=== PATIENT | female | born 1950 | race Caucasian/White ===

== ENCOUNTER 2018-02-07 18:39 | Emergency (ER) | payer OTHER ==
[2018-02-07 18:55] VITALS: BP 143/86
[2018-02-07] MEDS ORDERED: LIDOCAINE-EPINEPH-TETRACAINE 3 ML SYRINGE TOP STA (19:19)
[2018-02-07] MEDS ORDERED: TETANUS/DIPHTHERIA/PERTUSSIS 0.5 ML SYRINGE IM ONE (19:19)
--- NOTE | 2018-02-07 19:21 | ED Physician Documentation ---
PD HPI HEAD INJURY - Stated complaint Stated Complaint: GLF - LIP/NOSE LAC - Chief complaint Chief Complaint: Trauma Hd/Nk - History obtained from History obtained from: Patient - History of Present Illness Mechanism of head injury: Fell (She fell off a boat getting off the boat and hit on her face on the dock. There was no loss of consciousness or headache. Complains of nasal pain and injured incisors and facial scrapes. She has a borderline tetanus status. She declines pain medication.) Timing - onset: Today Review of Systems Constitutional: denies: Fever, Chills Nose: denies: Rhinorrhea / runny nose, Congestion, Epistaxis Throat: denies: Sore throat Cardiac: denies: Chest pain / pressure, Palpitations PD PAST MEDICAL HISTORY - Past Medical History Past Medical History: No - Past Surgical History Past Surgical History: No - Present Medications Home Medications: Ambulatory Orders Medication Instructions Recorded Confirmed Cephalexin [Keflex] 500 mg PO QID #40 capsule 02/07/18 - Allergies Allergies/Adverse Reactions: Allergies Allergy/AdvReac Type Severity Reaction Status Date / Time Penicillins Allergy Unknown Verified 02/07/18 20:26 Sulfa (Sulfonamide Allergy Unknown Verified 02/07/18 20:27 Antibiotics) - Social History Does the pt smoke?: No Smoking Status: Never smoker Does the pt drink ETOH?: No Does the pt have substance abuse?: No - Immunizations Immunizations are current?: Yes - POLST Patient has POLST: No PD ED PE NORMAL - Vitals Vital signs reviewed: Yes - General General: Alert and oriented X 3, No acute distress - HEENT HEENT: PERRL, EOMI, Other (Slight deformity of the nasal bridge to the right with a laceration on the top left of the nasal bridge, very slightly posterior subluxed #8 9 without other obvious facial bony tenderness.) - Neck Neck: Supple, no meningeal sign, No bony TTP - Neuro Neuro: Alert and oriented X 3, 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 Eye Opening: Spontaneous Motor: Obeys Commands Verbal: Oriented GCS Score: 15 - Psych Psych: Normal mood, Normal affect Results - Vitals Vitals: Vital Signs - 24 hr 02/07/18 18:51 Temperature 35.9 C L Heart Rate 79 Respiratory 18 Rate Blood Pressure 143/86 H O2 Saturation 100 Oxygen O2 Source Room air - Rads (name of study) Ct facial bones Radiology: EMP read contemporaneously Procedures - Laceration (location) nasal bridge Length in cm: 1 Wound type: Linear Anesthesia: LET Wound Preparation: Irrigated copiously NS Skin layer closure: Prolene, Size #-0 - enter number (6-0), Sutures - enter # (2 ) Other: Neurovascular intact, Tetanus booster given Complexity: Simple PD MEDICAL DECISION MAKING - ED course ED course: 67-year-old woman with ground-level fall with facial injuries, has a mild nasal fracture and some scrapes on the face and a nasal bridge laceration was irrigated and closed and she was started on Keflex. In my opinion the nasal fracture probably does not need surgical intervention but she was referred to a local oral maxillofacial surgeon. The family wanted me to call Urdu and talk to their facial surgeon. I did call there at their request and there was quite a delay in talking to them- In fact they were never able to get me on the line with the facial surgeon, because they do trauma and therefore do not take facial surgery call. I had discharged the patient at that point, as they were understandably tired of waiting, so I left a voicemail with her getting that update. I encouraged her to still follow-up with a local OMFS. - Sepsis Event Vital Signs: Vital Signs - 24 hr 02/07/18 18:51 Temperature 35.9 C L Heart Rate 79 Respiratory 18 Rate Blood Pressure 143/86 H O2 Saturation 100 Oxygen O2 Source Room air Departure - Departure Disposition: 01 Home, Self Care Clinical Impression: Open nasal fracture Qualifiers: Encounter type: initial encounter Qualified Code(s): S02.2XXB - Fracture of nasal bones, initial encounter for open fracture Fracture of facial bone Qualifiers: Encounter type: initial encounter Facial bone/location: nasal bone Fracture type: open Qualified Code(s): S02.2XXB - Fracture of nasal bones, initial encounter for open fracture Condition: Good Record reviewed to determine appropriate education?: Yes Instructions: ED Fx Nasal Conf W X Ray Prescriptions: Cephalexin [Keflex] 500 mg PO QID #40 capsule Comments: For the nasal fracture I would like you to follow-up with Dr. Sudheer Pastor and oral maxillofacial surgeon in [place], his phone number is [phone], Take the copy of the CAT scan with you to that appointment. I have faxed a referral to his office as well. Your blood pressure was elevated today on check into the emergency department. This does not mean that you have hypertension, it is a common phenomenon to come to the emergency department and have elevated blood pressure. I recommend that you see your primary care physician within the week to have it rechecked when you are feeling better. Discharge Date/Time: 02/07/18 21:26
[2018-02-07] MEDS ORDERED: ONDANSETRON ODT 4 MG TABLET TL STA (19:52)
--- NOTE | 2018-02-07 20:04 | CT Report ---
Procedure Date: 02/07/2018 Accession Number: [id number] / [id number] Procedure: CT - Facial Bones W/O CPT Code: FULL RESULT: EXAM: CT MAXILLOFACIAL WITHOUT CONTRAST EXAM DATE: 02/07/2018 07:50 PM. CLINICAL HISTORY: Trauma, pain. COMPARISONS: None. TECHNIQUE: Thin-section axial images were acquired of the face without contrast. Post-processing: Coronal and sagittal reformats. Other: None. In accordance with CT protocol optimization, one or more of the following dose reduction techniques were utilized for this exam: automated exposure control, adjustment of mA and/or KV based on patient size, or use of iterative reconstructive technique. FINDINGS: Soft Tissue: The infratemporal fossa and parapharyngeal spaces are unremarkable. Orbits: Symmetric and unremarkable. Bones: The subtle minimally depressed fractures of the nasal alae. Superior and inferior nasal spines appear intact. No other definite fracture or bone lesion. Temporomandibular Joints: The temporomandibular joints are symmetric and normally located. Sinuses: Normal. No mucosal thickening or fluid levels. Other: Mucosal thickening of turbinates indicating nasal congestion. Irregularity and small defect of soft tissues overlying the nose. IMPRESSION: Nasal alar fracture. RADIA
[2018-02-07] MEDS ORDERED: ACETAMINOPHEN 500 MG TABLET PO STA (20:08)
[2018-02-07] MEDS ORDERED: cephALEXin 250 MG CAPSULE PO STA (20:21)
== END 2018-02-07 21:26 | disposition home or self-care (01) ==
LOC: ED 18:39
DX: S02.2XXB Fracture of nasal bones, initial encounter for open fracture (principal); Z23 Encounter for immunization; W19.XXXA Unspecified fall, initial encounter; Y92.814 Boat as the place of occurrence of the external cause
CPT/HCPCS: 12011; 70486; 90471; 90715; 99281; 99284; A9270

== ENCOUNTER 2023-12-18 17:10 | Emergency (ER) | payer MEDICARE, OTHER ==
--- NOTE | 2023-12-18 17:27 | ED Physician Documentation ---
PD HPI MAJOR TRAUMA - Stated complaint Stated Complaint: FALL OFF HORSE - Chief complaint Chief Complaint: Trauma Ch/Bk - Additional information Additional information: 72-year-old female with no pertinent past medical history presents emergency department after falling off horse. Patient says that she got on her horse. Back to write it back to the house and it is a cutting horse made a sharp sudden move patient lost balance and fell off of the horse on her left side. She says that she thinks that she lost consciousness as she does not recall the event or what entirely happened. She is not on blood thinners she called 911 upon arr ival from EMS patient was found walking to the ambulance. Patient endorses and head and neck pain, left shoulder pain although she says that she does have chronic left shoulder pain. And also endorses an left hip/left buttocks pain. She is having no difficulty breathing no vision changes completely neurologically intact at this point in time. PD PAST MEDICAL HISTORY - Past Medical History Past Medical History: Yes - Past Surgical History Past Surgical History: No - Present Medications Home Medications: Ambulatory Orders Medication Instructions Recorded Confirmed cephALEXin [Keflex] 500 mg PO QID #40 capsule 02/07/18 - Allergies Allergies/Adverse Reactions: Allergies Allergy/AdvReac Type Severity Reaction Status Date / Time Penicillins Allergy Rash Verified 12/18/23 17:17 Sulfa (Sulfonamide Allergy Unknown Verified 12/18/23 17:17 Antibiotics) - Social History Does the pt smoke?: No Smoking Status: Never smoker Does the pt drink ETOH?: No Does the pt have substance abuse?: No - Immunizations Immunizations are current?: Yes - POLST Patient has POLST: No PD ED PE NORMAL - Vitals Vital signs reviewed: Yes - General General: Alert and oriented X 3, No acute distress, Other (Patient is slightly cachectic) - HEENT HEENT: PERRL - Neck Neck: No JVD, Other (cervical tenderness with palpation) - Cardiac Cardiac: RRR, No murmur, No gallop, Strong equal pulses - Respiratory Respiratory: No respiratory distress, Clear bilaterally - Abdomen Abdomen: Normal bowel sounds, Soft, Non distended, No organomegaly, Other (left rib tenderness.) - Back Back: Other (left CVA tenderness) - Derm Derm: Normal color, Warm and dry, No rash - Extremities Extremities: Other - Neuro Neuro: Alert and oriented X 3, 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 Left hip: Pain with flexion extension of the left hip without any crepitus tenderness over the left buttocks region. Left knee within normal limits. Results - Vitals Vitals: Vital Signs - 24 hr 12/18/23 12/18/23 12/18/23 17:18 17:52 18:22 Temperature 35.9 C L Heart Rate 76 86 90 Respiratory 18 16 16 Rate Blood Pressure 153/73 H 133/68 H 136/87 H O2 Saturation 98 100 100 12/18/23 12/18/23 12/18/23 19:00 19:30 20:00 Temperature Heart Rate 93 93 97 Respiratory 18 17 16 Rate Blood Pressure 142/90 H 147/78 H 135/91 H O2 Saturation 100 98 100 Oxygen O2 Source Room air - Labs Labs: Laboratory Tests 12/18/23 12/18/23 17:48 17:58 WBC 13.8 H RBC 3.89 L Hgb 12.1 Hct 36.9 L MCV 94.9 MCH 31.1 H MCHC 32.8 RDW 13.6 Plt Count 196 MPV 10.1 Neut # (Auto) 11.9 H Lymph # (Auto) 1.0 L Hanson # (Auto) 0.8 Eos # (Auto) 0.0 Baso # (Auto) 0.0 Absolute Nucleated RBC 0.00 Nucleated RBC % 0.0 Sodium 137 Potassium 3.9 Chloride 105 Carbon Dioxide 25 Anion Gap 7.0 BUN 22 H Creatinine 0.8 Estimated GFR (MDRD) 71 L Glucose 130 H Calcium 9.4 Magnesium 1.6 L Total Bilirubin 0.4 AST 33 ALT 20 Alkaline Phosphatase 50 Total Protein 6.6 Albumin 4.0 Globulin 2.6 Albumin/Globulin Ratio 1.5 Lipase 50 - Rads (name of study) Hip/pelvis left Relevant Findings:: Final report received, EMP independent interpretation of test, Other (No acute bony abnormalities or findings.) Cervical spine without Relevant Findings:: Final report received, EMP independent interpretation of test, Other (No acute bony abnormalities or findings) Chest CT without Relevant Findings:: Final report received, EMP independent interpretation of test, Other (No rib fractures no hemothorax no pneumothorax, bibasilar atelectasis incidental finding of right minor fissure pulmonary nodule measuring 0.5 cm) Head CT without Relevant Findings:: Final report received, EMP independent interpretation of test, Other (No acute intracranial hemorrhages or abnormalities.) PD Medical Decision Making - ED course ED course: 72-year-old female presents emergency department After falling off her horse. CT head without, CT cervical without, CT chest without was complete for further evaluation of intracranial hemorrhages or abnormalities or cervical or rib fractures. No acute findings were found on CT without con of head, cervical, chest no rib fractures no intracranial hemorrhages or abnormalities no cervical subluxation or fractures are visualized. X-rays completed of patient's left hip and no acute bony abnormalities were found on her left hip as well. We did consider doing a CT of her left hip but patient said that she is able to ambulate although painful with Tylenol she said that she feels comfortable going home with just x-rays for now and Tylenol and she said if she gets any worse she will come back to the emergency department for further imaging. She does not have a primary care provider she was strongly encouraged to establish care with one. She was offered narcotics but patient says that she hates the way narcotics make her feel and would like to just stick with Tylenol. She was also offered a muscle relaxer and also declined this. She is told to take it easy going home but to continue to move around and anticipate getting more sore over the next several days. Strict ER return precautions given patient was able to provide teach back and understands how to care for herself at home. All questions answered patient is safe for discharge her friend is leaving with her and she is driving her home. Departure - Departure Disposition: 01 Home, Self Care Clinical Impression: Fall from horse, Rib pain on left side, Left hip pain Instructions: ED Contusion Chest Wall, ED Contusion Hip Comments: Thank you for trusting us with your care. We have completed a head CT, cervical teeth CTA, chest CT we are not seeing any acute fractures or abnormalities at this point in time. See below for incidental finding per radiology on your chest imaging. We have also completed x-rays of your left hip and I am not seeing any acute fractures at this point in time. Please have a very low threshold to come back into the emergency department if your pain is getting any worse if you are unable to tolerate the pain at home with Tylenol alone. You can take 1000 mg of Tylenol every 8 hours apply ice 20 minutes at a time 1 hour off for pain and discomfort and again please have a very low threshold to come back into the emergency department if you are noticing any neurological changes or if you are having a hard time dealing with the pain at home. Wishing you a speedy recovery make sure that you keep moving but also take rest as needed to help with recovery please expect to be more sore over the next couple days. Incidental findings: Right minor fissure pulmonary nodule measuring 0.5 cm. Consider follow-up CT chest in 6-12 months depending on risk factors. Chondroid matrix at the left humeral head. 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 Punctate nonobstructing right kidney stone. The left kidney is not visualized. Forms: PCP List Discharge Date/Time: 12/18/23 20:22
[2023-12-18 18:02] LABS: BASOPHILS % (AUTO) 0.2 %; EOSINOPHILS % (AUTO) 0.1 %; HCT - HEMATOCRIT 36.9 % (37.0-47.0); HGB - HEMOGLOBIN 12.1 g/dL (12.0-16.0); LYMPHOCYTES % (AUTO) 7.4 %; MEAN CORPUSCULAR HEMOGLOBIN 31.1 pg (27.0-31.0); MEAN CORPUSCULAR HGB CONC 32.8 g/dL (32.0-36.0); MEAN CORPUSCULAR VOLUME 94.9 fL (81.0-99.0); MEAN PLATELET VOLUME 10.1 fL (7.9-10.8); MONOCYTES # (AUTO) 0.8 10^3/uL (0.0-1.0); MONOCYTES % (AUTO) 5.7 %; NEUTROPHILS # (AUTO) 11.9 10^3/uL (1.5-6.6); NEUTROPHILS % (AUTO) 86.2 %; PLT - PLATELET COUNT 196 10^3/uL (130-450); RED BLOOD COUNT 3.89 10^6/uL (4.20-5.40); RED CELL DISTRIBUTION WIDTH 13.6 % (12.0-15.0); WHITE BLOOD COUNT 13.8 x10^3/uL (4.8-10.8)
[2023-12-18 18:15] LABS: MAGNESIUM 1.6 mg/dL (1.7-2.3)
[2023-12-18 18:21] LABS: ALBUMIN/GLOBULIN RATIO 1.5 (1.0-2.2); BILIRUBIN,TOTAL 0.4 mg/dL (0.2-1.0); CALCIUM 9.4 mg/dL (8.5-10.3); CREATININE 0.8 mg/dL (0.6-1.3); POTASSIUM 3.9 mmol/L (3.5-4.5); TOTAL PROTEIN 6.6 g/dL (6.4-8.9)
--- NOTE | 2023-12-18 18:48 | CT Report ---
PROCEDURE: Head WO INDICATIONS: fall from horse, loss of consciousness TECHNIQUE: Noncontrast 4.5 mm thick angled axial sections acquired from the foramen magnum to the vertex. For r adiation dose reduction, the following was used: automated exposure control, adjustment of mA and/or kV according to patient size. COMPARISON: Maxillofacial CT 02/07/2018. FINDINGS: Image quality: Excellent. CSF spaces: Basal cisterns are patent. No extra-axial fluid collections. Ventricles are normal in size and shape. Brain: No midline shift. No intracranial masses or hemorrhage. Dinero-white matter interface is norm al. Skull and face: Calvarium and visualized facial bones are intact, without suspicious lesions. Sinuses: Visualized sinuses and mastoids are clear. IMPRESSION: No acute intracranial pathology. Reviewed by: Nikhil Sierra MD on 12/18/2023 6:47 PM PDT Approved by: Nikhil Sierra MD on 12/18/2023 6:47 PM PDT Station ID: [id number]
[2023-12-18 18:51] VITALS: O2SAT 100
[2023-12-18] MEDS: ACETAMINOPHEN 325 MG TABLET PO STA (19:15)
--- NOTE | 2023-12-18 19:34 | CT Report ---
PROCEDURE: Cervical Spine WO INDICATIONS: fall from horse, neck pain TECHNIQUE: Noncontrast 3 mm thick sections acquired from the skull base to the T4 level. Sagittal and coronal r eformats were then constructed. For radiation dose reduction, the following was used: automated exp osure control, adjustment of mA and/or kV according to patient size. COMPARISON: None. FINDINGS: Image quality: Excellent. Bones: No fractures or dislocations. Moderate degenerative changes most pronounced at C5-C6. Visual ized superior ribs are intact. Soft tissues: Prevertebral soft tissues are normal in thickness. No paravertebral hematomas. Trace right thyroid tissue. No apical pneumothoraces. IMPRESSION: No acute osseous abnormality. Reviewed by: Nikhil Sierra MD on 12/18/2023 7:33 PM PDT Approved by: Nikhil Sierra MD on 12/18/2023 7:33 PM PDT Station ID: [id number]
--- NOTE | 2023-12-18 19:42 | XRAY Report ---
PROCEDURE: Hip w/Pelvis 2-3V LT INDICATIONS: left hip pain after fall from horse TECHNIQUE: 2 views of the hip were acquired. COMPARISON: None. FINDINGS: Bones: No fractures or dislocations. No suspicious bony lesions. Soft tissues: No suspicious soft tissue calcifications or masses. IMPRESSION: No acute bony abnormality. If clinically indicated CT bony pelvis could be considered for further evaluation. Reviewed by: Nikhil Sierra MD on 12/18/2023 7:41 PM PDT Approved by: Nikhil Sierra MD on 12/18/2023 7:41 PM PDT Station ID: [id number]
--- NOTE | 2023-12-18 19:42 | CT Report ---
PROCEDURE: Chest WO INDICATIONS: left rib pain, left shoulder pain, fall from horse TECHNIQUE: A CT scan of the chest was performed. Intravenous contrast media was not administered. Images were re corded and evaluated at appropriate window settings. Reformats: axial MIP of the chest, coronal and s agittal. For radiation dose reduction, the following was used: automated exposure control, adjustment of mA and/or kV according to patient size. COMPARISON: None. FINDINGS: Image quality: Diagnostic. Chest wall and lower neck: No thyroid nodule which requires sonographic follow up. No axillary or sup raclavicular adenopathy by size. Lungs and pleura: No consolidation. Bibasilar atelectasis. No pleural effusions. No pneumothorax. Rig ht minor fissure pulmonary nodule measuring 0.5 cm, (4/53). Mediastinum: Heart size is normal. No pericardial effusion. No large vessel abnormality. No mediastin al adenopathy by size criteria. Bones: No aggressive osseous abnormality. Chondroid matrix at the left humeral head, (S1). Partially visualized. Upper Abdomen: Punctate nonobstructing right kidney stone. The left kidney is not visualized.. IMPRESSION: 1. No rib fracture. No hemothorax. No pneumothorax. 2. Bibasilar atelectasis. Incidental findings: Right minor fissure pulmonary nodule measuring 0.5 cm. Consider follow-up CT chest in 6-12 months dep ending on risk factors. Chondroid matrix at the left humeral head. 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 Punctate nonobstructing right kidney stone. The left kidney is not visualized. Reviewed by: Nikhil Sierra MD on 12/18/2023 7:40 PM PDT Approved by: Nikhil Sierra MD on 12/18/2023 7:40 PM PDT Station ID: [id number]
[2023-12-18 20:07] VITALS: BP 135/91
== END 2023-12-18 20:22 | disposition home or self-care (01) ==
LOC: EDUNIT# → ED 17:10
DX: M25.552 Pain in left hip (principal); R55 Syncope and collapse; R07.81 Pleurodynia; V80.010A Animal-rider injured by fall from or being thrown from horse in noncollision accident, initial encounter; Y93.52 Activity, horseback riding; R91.1 Solitary pulmonary nodule; N20.0 Calculus of kidney; R93.6 Abnormal findings on diagnostic imaging of limbs
CPT/HCPCS: 36415; 70450; 71250; 72125; 73502; 80053; 83690; 83735; 85025; 99284; A9270